=== PATIENT | female | born 1965 | race Hispanic/Latino ===

== ENCOUNTER 2018-01-19 11:23 | Observation (INO) | payer SELFPAY ==
[~2018-01-19] VITALS: Ht 162.6 cm; Wt 100.0 kg
[2018-01-19 12:35] LABS: BASOPHILS % 0.2 % (0.0-1.0); EOSINOPHILS # (AUTO) 0.4 (0.0-0.4); EOSINOPHILS % 3.8 % (0.0-6.0); HEMATOCRIT 37.3 % (34.2-44.1); HEMOGLOBIN 12.6 g/dL (12.0-16.0); LYMPHOCYTES # (AUTO) 1.9 (1.0-3.2); LYMPHOCYTES % 19.1 % (18.0-39.1); MEAN CORPUSCULAR HEMOGLOBIN 30.4 pg (28-32); MEAN CORPUSCULAR HGB CONC 33.8 g/dL (31-35); MEAN CORPUSCULAR VOLUME 89.9 fL (81-99); MONOCYTES # (AUTO) 0.7 (0.2-0.8); MONOCYTES % 6.4 % (4.4-11.3); NEUTROPHILS # (AUTO) 7.1 (2.1-6.9); NEUTROPHILS % 70.3 % (38.7-80.0); PLATELET COUNT 307 x10e3/uL (140-360); RED BLOOD COUNT 4.15 x10e6/uL (3.6-5.1); RED CELL DISTRIBUTION WIDTH 12.8 % (11.7-14.4)
[2018-01-19 12:45] LABS: INR 1.02; PROTHROMBIN TIME 12.6 seconds (11.9-14.5)
[2018-01-19 12:52] LABS: ANION GAP 14.3 mmol/L (8-16); CALCIUM 9.3 mg/dL (8.4-10.2); CREATININE, SERUM 0.97 mg/dL (0.57-1.11); POTASSIUM 3.3 mmol/L (3.5-5.1)
[2018-01-19 13:16] LABS: BILIRUBIN,URINE NEGATIVE (NEGATIVE); CLARITY,URINE CLEAR (CLEAR); COLOR,URINE YELLOW (YELLOW); KETONES,URINE NEGATIVE (NEGATIVE); LEUKOCYTE ESTERASE ,URINE TRACE (NEGATIVE); NITRITE,URINE NEGATIVE (NEGATIVE); PROTEIN,URINE DIPSTICK NEGATIVE (NEGATIVE); URINE UROBILINOGEN 0.2 mg/dL (0.2 - 1)
[2018-01-19 13:41] LABS: BACTERIA,URINE RARE /HPF; EPITHELIAL CELLS,URINE RARE /LPF; RBC,URINE 21-50 /HPF (0-5); WBC,URINE (MAN) 0-5 /HPF (0-5)
[2018-01-19] MEDS ORDERED: MORPHINE SULFATE 2 MG/ML SYR IV STA ×2 (13:55→16:28)
[2018-01-19] MEDS ORDERED: ONDANSETRON HCL INJ 2 MG/ML VIAL IV STA ×2 (13:55→17:32)
--- NOTE | 2018-01-19 16:11 | Diagnostic Imaging Report ---
EXAM: Transabdominal and Transvaginal Pelvic Ultrasound INDICATION: Post-menopausal bleeding and pelvic pain COMPARISON: None TECHNIQUE: Grayscale transverse and sagittal transabdominal and transvaginal images were obtained of the pelvis. Transvaginal imaging was medically necessary to better evaluate the endometrium and the adnexa. CLINICAL HISTORY: 52 year old A0; last menstrual period: Postmenopausal. FINDINGS: Uterus Orientation: Normal Size: 6.3 x 3.3 x 4.1 cm, Normal Mass: Heterogeneous echogenicity. Cervix: Irregularly-shaped nonshadowing mildly echogenic mass in the cervix measuring 3.4 x 2.1 x 2.6 cm, demonstrating increased blood flow. Endometrium: Thickness: 1.1 cm, thickened. Appearance: Heterogeneous echotexture without focal thickening. Right ovary: Not visualized Left ovary: Size: 2.8 x 1.7 x 1.5 cm Mass/Cyst: None Adnexa: Tubular anechoic structure in the left adnexa may represent a hydrosalpinx. Cul-de-sac: No free fluid IMPRESSION: 1. 3.4 cm cervical mass. 2. Abnormal thickening endometrial stripe may reflect hyperplasia versus neoplasm. 3. Small left-sided hydrosalpinx. Recommend gynecological evaluation for possible tissue diagnosis. Signed by: Dr. Yury López M.D. on 01/19/2018 4:01 PM
[2018-01-19] MEDS ORDERED: DIATRIZOATE MEGL/DIATRIZOA SOD 30 ML BTL PO ONE (16:45)
--- NOTE | 2018-01-19 18:28 | Diagnostic Imaging Report ---
EXAM: CT Abdomen and Pelvis WITH contrast INDICATION: Vaginal bleeding. COMPARISON: None. Correlation with ultrasound of pelvis dated 01/19/2018. TECHNIQUE: Abdomen and pelvis were scanned utilizing a multidetector helical scanner from the lung base to the pubic symphysis after administration of IV contrast. Coronal and sagittal reformations were obtained. Routine protocol was performed. Scan was performed when during portal venous phase. IV CONTRAST: 150 mL of Omnipaque 300 ORAL CONTRAST: Water RADIATION DOSE: Total DLP: 866.04 mGy*cm Estimated effective dose: (DLP x 0.015 x size factor) mSv COMPLICATIONS: None FINDINGS: LINES and TUBES: None. LOWER THORAX: Unremarkable HEPATOBILIARY: Mild low attenuation of the hepatic parenchyma suggestive of steatosis. No focal hepatic lesions. No biliary ductal dilation. GALLBLADDER: No radio-opaque stones or sludge. No wall thickening. SPLEEN: No splenomegaly. PANCREAS: No focal masses or ductal dilatation. ADRENALS: No right adrenal nodules. There is a 1.2 cm low-attenuation lesion in the left adrenal gland which cannot be further characterized due to lack of precontrast scans, however, statistically most likely adenoma. KIDNEYS/URETERS: Kidneys enhance symmetrically. There is moderate left hydroureteronephrosis, with ureteral dilatation of the way to the pelvis, raising concern for occlusion of the left UVJ by a cervical mass.. No cystic or solid mass lesions. No stones. GI TRACT: No abnormal distention, wall thickening, or evidence of bowel obstruction. Appendix is normal. PELVIC ORGANS/BLADDER: Heterogeneously enhancing cervical mass estimated at 5.5 x 4.4 cm on sagittal image 80. It is estimated at 6.2 cm in transverse dimension on coronal image 80. Associated with punctate calcifications. A focal area of low attenuation between the cervix and the posterior aspect of the urinary bladder measures 2.9 cm on image 74. LYMPH NODES: Enlarged left external iliac lymph node cervical for instance, a lymph node measures 3.1 x 1.6 cm on image 74 series 2. VESSELS: Unremarkable. PERITONEUM / RETROPERITONEUM: No free air or fluid. BONES: No suspicious lesions. Lumbar transitional vertebra with bilateral pseudoarthrosis. SOFT TISSUES: Unremarkable. IMPRESSION: 1. 6.2 cm cervical mass consistent with carcinoma. Left external iliac metastatic lymphadenopathy. Again recommend gynecology consultation for tissue diagnosis. 2. Moderate left hydroureteronephrosis probably secondary to ureter obstruction by the cervical mass. 3. 1.2 cm low-attenuation lesion in the left adrenal gland statistically most likely to represent an adenoma, however, this could be confirmed with nonemergent CT adrenal mass protocol. Discussed with Dr. Jansen from the ER at 6:15 PM on 01/19/2018. Signed by: Dr. Yury López M.D. on 01/19/2018 6:25 PM
[2018-01-19] MEDS ORDERED: SODIUM CHLORIDE FLUSH 10 ML SYR INJ PRN (19:15)
[2018-01-19] MEDS ORDERED: HYDROMORPHONE 1MG/1ML INJ IV PRN (19:15)
--- OUTSIDE RECORDS SUMMARY | 2018-01-19 19:49 | XMS REPORT ---
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 Allergies, Adverse Reactions, Alerts This patient has no known allergies or adverse reactions. Medications This patient has no known medications. Results Test Description Test Time Test Comments Text Results Atomic Results Result Comments CT ABDOMEN/PELVIS W [facility] [address] [address] Patient Name: CONCHIS LOPEZ MR #: [id number] : 1965 Age/Sex: 52/F Req #: [id number] [facility] Physician: Ordered by: ARLETTE DOUGHERTY MD Report #: [id number] Location: ER Room/Bed: Procedure: [id number] CT/CT ABDOMEN/PELVIS W Exam Date: 01/19/18 Exam Time: 1730 REPORT STATUS: Signed EXAM: CT Abdomen and Pelvis WITH contrast INDICATION: Vaginal bleeding. COMPARISON: None. Correlation with ultrasound of pelvis dated 01/19/2018. TECHNIQUE: Abdomen and pelvis were scanned utilizing a multidetector helical scanner from the lung base to the pubic symphysis after administration of IV contrast. Coronal and sagittal reformations were obtained. Routine protocol was performed. Scan was performed when during portal venous phase. IV CONTRAST: 150 mL of Omnipaque 300 ORAL CONTRAST: Water RADIATION DOSE: Total DLP: 866.04 mGy*cm Estimated effective dose: (DLP x 0.015 x size factor) mSv COMPLICATIONS: None FINDINGS: LINES and TUBES: None. LOWER THORAX: Unremarkable HEPATOBILIARY: Mild low attenuation of the hepatic parenchyma suggestive of steatosis. No focal hepatic lesions. No biliary ductal dilation. GALLBLADDER: No radio-opaque stones or sludge. No wall thickening. SPLEEN: No splenomegaly. PANCREAS: No focal masses or ductal dilatation. ADRENALS: No right adrenal nodules. There is a 1.2 cm low-attenuation lesion in the left adrenal gland which cannot be further characterized due to lack of precontrast scans, however, statistically most likely adenoma. KIDNEYS/URETERS: Kidneys enhance symmetrically. There is moderate left hydroureteronephrosis, with ureteral dilatation of the way to the pelvis, raising concern for occlusion of the left UVJ by a cervical mass.. No cystic or solid mass lesions. No stones. GI TRACT: No abnormal distention, wall thickening, or evidence of bowel obstruction. Appendix is normal. PELVIC ORGANS/BLADDER: Heterogeneously enhancing cervical mass estimated at 5.5 x 4.4 cm on sagittal image 80. It is estimated at 6.2 cm in transverse dimension on coronal image 80. Associated with punctate calcifications. A focal area of low attenuation between the cervix and the posterior aspect of the urinary bladder measures 2.9 cm on image 74. LYMPH NODES: Enlarged left external iliac lymph node cervical for instance, a lymph node measures 3.1 x 1.6 cm on image 74 series 2. VESSELS: Unremarkable. PERITONEUM / RETROPERITONEUM: No free air or fluid. BONES: No suspicious lesions. Lumbar transitional vertebra with bilateral pseudoarthrosis. SOFT TISSUES: Unremarkable. IMPRESSION : 1. 6.2 cm cervical mass consistent with carcinoma. Left external iliac metastatic lymphadenopathy. Again recommend gynecology consultation for tissue diagnosis. 2. Moderate left hydroureteronephrosis probably secondary to ureter obstruction by the cervical mass. 3. 1.2 cm low- attenuation lesion in the left adrenal gland statistically most likely to represent an adenoma, however, this could be confirmed with nonemergent CT adrenal mass protocol. Discussed with Dr. Dougherty from the ER at 6:15 PM on . Signed by: Dr. Yury Duff M.D. on 01/19/2018 6:25 PM Dictated By: ELISA DUFF MD, MD 24 Transcribed By: ZENA on 01/19/181824 COPY TO: ARLETTE DOUGHERTY MD US TRANSVAGINAL [address] [place] [address] Patient Name: CONCHIS LOPEZ MR #: [id number] : 1965 Age/Sex: 52/F Req # : [id number] [facility] Physician: Ordered by: ARLETTE DOUGHERTY MD Report #: [id number] Location: ER Room/Bed: Procedure: [id number] US/US TRANSVAGINAL Exam Date: Exam Time: REPORT STATUS: Signed EXAM: Transabdominal and Transvaginal Pelvic Ultrasound INDICATION: Post-menopausal bleeding and pelvic pain COMPARISON: None TECHNIQUE: Grayscale transverse and sagittal transabdominal and transvaginal images were obtained of the pelvis. Transvaginal imaging was medically necessary to better evaluate the endometrium and the adnexa. CLINICAL HISTORY: 52 year old A0; last menstrual period: Postmenopausal. FINDINGS: Uterus Orientation: Normal Size: 6.3 x 3.3 x 4.1 cm, Normal Mass: Heterogeneous echogenicity. Cervix: Irregularly-shaped nonshadowing mildly echogenic mass in the cervix measuring 3.4 x 2.1 x 2.6 cm, demonstrating increased blood flow. Endometrium: Thickness: 1.1 cm, thickened. Appearance: Heterogeneous echotexture without focal thickening. Right ovary: Not visualized Left ovary: Size: 2.8 x 1.7 x 1.5 cm Mass/Cyst: None Adnexa: Tubular anechoic structure in the left adnexa may represent a hydrosalpinx. Cul-de-sac: No free fluid IMPRESSION: 1. 3.4 cm cervical mass. 2. Abnormal thickening endometrial stripe may reflect hyperplasia versus neoplasm. 3. Small left -sided hydrosalpinx. Recommend gynecological evaluation for possible tissue diagnosis. Signed by: Dr. Yury Duff M.D. on 01/19/2018 4: 01 PM Dictated By: ELISA DUFF MD, MD 1601 Transcribed By: ZENA on 01/19/18 1601 COPY TO: ARLETTE DOUGHERTY MD
[2018-01-19 20:19] VITALS: BP 171/73
[2018-01-19 20:30] VITALS: BP 171/73
[2018-01-19] MEDS: ONDANSETRON HCL INJ 2 MG/ML VIAL IV PRN (20:59)
[2018-01-19 21:56] LABS: INR 1.08; PROTHROMBIN TIME 13.2 seconds (11.9-14.5)
[2018-01-19 21:57] LABS: PARTIAL THROMBOPLASTIN TIME 27.5 seconds (23.8-35.5)
[2018-01-19] MEDS ORDERED: LISINOPRIL 10 MG TAB PO ONE (22:15)
[2018-01-20] VITALS: BP 165/75
[2018-01-20 04:00] VITALS: BP 167/77
[2018-01-20] MEDS ORDERED: IOPAMIDOL 370 MG/ML 200 ML INFUS..BTL INJ ONE (04:21)
[2018-01-20] MEDS ORDERED: SODIUM CHLORIDE 0.9% 50ML 50 ML ONE (04:21)
[2018-01-20 07:05] LABS: BASOPHILS % 0.3 % (0.0-1.0); EOSINOPHILS % 0.4 % (0.0-6.0); HEMATOCRIT 35.3 % (34.2-44.1); HEMOGLOBIN 11.8 g/dL (12.0-16.0); LYMPHOCYTES % 20.4 % (18.0-39.1); MEAN CORPUSCULAR HEMOGLOBIN 30.6 pg (28-32); MEAN CORPUSCULAR HGB CONC 33.4 g/dL (31-35); MEAN CORPUSCULAR VOLUME 91.7 fL (81-99); MONOCYTES # (AUTO) 0.9 (0.2-0.8); MONOCYTES % 8.8 % (4.4-11.3); NEUTROPHILS # (AUTO) 6.7 (2.1-6.9); NEUTROPHILS % 69.8 % (38.7-80.0); PLATELET COUNT 278 x10e3/uL (140-360); RED BLOOD COUNT 3.85 x10e6/uL (3.6-5.1); RED CELL DISTRIBUTION WIDTH 12.7 % (11.7-14.4)
[2018-01-20 07:16] LABS: ANION GAP 13.3 mmol/L (8-16); BLOOD UREA NITROGEN 11 mg/dL (7-26); BUN/CREATININE RATIO 12 (6-25); CALCIUM 9.3 mg/dL (8.4-10.2); CARBON DIOXIDE 30 mmol/L (22-29); CHLORIDE 102 mmol/L (98-107); CREATININE, SERUM 0.94 mg/dL (0.57-1.11); EST GLOMERULAR FILTRATION RATE > 60 ML/MIN (60-); GLUCOSE 116 mg/dL (74-118); POTASSIUM 4.3 mmol/L (3.5-5.1); SODIUM 141 mmol/L (136-145)
[2018-01-20 07:59] VITALS: BP 162/76
[2018-01-20] MEDS ORDERED: LISINOPRIL 10 MG TAB PO SCH (09:00)
[2018-01-20] MEDS ORDERED: MORPHINE SULFATE 4 MG/ML SYR IV PRN (09:45)
[2018-01-20] MEDS ORDERED: MORPHINE SULFATE 2 MG/ML SYR IV PRN (10:00)
[2018-01-20] MEDS: ONDANSETRON HCL INJ 2 MG/ML VIAL IV PRN (10:25)
[2018-01-20 11:50] VITALS: BP 157/67
== END 2018-01-20 12:18 | disposition short-term general hospital (02) ==
LOC: ER 11:23 → MED/SURG 19:47
DX: C53.9 Malignant neoplasm of cervix uteri, unspecified (principal); N23 Unspecified renal colic; N13.39 Other hydronephrosis; N93.9 Abnormal uterine and vaginal bleeding, unspecified; I10 Essential (primary) hypertension
CPT/HCPCS: 36415; 74177; 76830; 80048; 81001; 85025; 85610; 85730; 86850; 86900; 96374; 96376; 99284; G0378; J1170; J2270; J2405; Q9967